=== PATIENT | female | born 1930 | race Caucasian/White ===

== ENCOUNTER 2018-01-17 11:39 | Inpatient (IN) | payer MEDICARE ==
[~2018-01-17] VITALS: Ht 160 cm; Wt 85.6 kg
[2018-01-17 11:55] LABS: BASOPHILS % (AUTO) 1.1 % (0.0-5.0); EOSINOPHILS % (AUTO) 4.2 % (0.0-8.0); HEMATOCRIT 35.9 % (36-48); LYMPHOCYTES % (AUTO) 22.6 % (21.0-51.0); MEAN CORPUSCULAR HEMOGLOBIN 32.9 pg (27.0-33.0); MONOCYTES % (AUTO) 9.3 % (3.0-13.0); NEUTROPHILS % (AUTO) 62.8 % (40.0-77.0); NUCLEATED RED BLOOD CELLS 0.2 % (0.0-0.19); PLATELET COUNT (AUTO) 153 K/uL (130-400); RED BLOOD CELL COUNT(AUTO) 3.82 MIL/uL (4.00-5.50); RED CELL DISTRIBUTION WIDTH 14.3 % (11.0-15.5)
[2018-01-17 12:06] LABS: CREATININE 1.6 mg/dL (0.5-1.5); INR 1.16 (0.85-1.15); PARTIAL THROMBOPLASTIN TIME 24.5 SEC (26.3-35.5); POTASSIUM 4.5 mmol/L (3.5-5.1); PROTHROMBIN TIME 12.1 SEC (9.6-11.6)
[2018-01-17 12:13] LABS: B-TYPE NATRIURETIC PEPTIDE 513 pg/mL (0-100)
[2018-01-17] MEDS ORDERED: VERAPAMIL HCL 2.5 MG/ML VIAL IVP SCH ×2 (12:15→12:30)
[2018-01-17 12:20] LABS: ALBUMIN 3.6 g/dL (3.5-5.0); BILIRUBIN,TOTAL 0.7 mg/dL (0.2-1.0); CREATINE KINASE MB 1.2 ng/mL (0.5-3.6)
[2018-01-17] MEDS ORDERED: SODIUM CHLORIDE 0.9% 100 ML IV SCH (12:30)
[2018-01-17 22:00] VITALS: BP 149/95
[2018-01-18 03:51] VITALS: BP 131/96
[2018-01-18 07:14] VITALS: BP 154/80
[2018-01-18] MEDS: PANTOPRAZOLE SODIUM 40 MG TABLET.DR PO SCH (08:07)
[2018-01-18] MEDS ORDERED: OMEP20CA10 PO (09:48)
[2018-01-18] MEDS ORDERED: MULT-685 PO (09:48)
[2018-01-18] MEDS ORDERED: TRAV2.5D OD (09:48)
[2018-01-18] MEDS ORDERED: TIMO1DRO OP (09:48)
[2018-01-18] MEDS ORDERED: OXYB5TAB PO (09:48)
[2018-01-18] MEDS ORDERED: SENN-136 PO (09:48)
[2018-01-18] MEDS ORDERED: GABA-529 PO (09:48)
[2018-01-18] MEDS ORDERED: LEVE500T19 PO (09:48)
[2018-01-18] MEDS ORDERED: HYDR12.54 PO (09:48)
[2018-01-18] MEDS ORDERED: CALC600T12 PO (09:48)
[2018-01-18] MEDS ORDERED: METO-391 PO (09:48)
[2018-01-18] MEDS ORDERED: ACET-2900 PO (09:48)
[2018-01-18] MEDS ORDERED: AEC81 PO (09:48)
[2018-01-18] MEDS ORDERED: GUAIFENESIN-DM 200/20 MG 10 ML PO PRN (10:00)
[2018-01-18] MEDS ORDERED: NITROGLYCERIN 0.4 MG SL TAB SL PRN (10:00)
[2018-01-18] MEDS ORDERED: ONDANSETRON HCL 4 MG/2 ML VIAL IV PRN (10:00)
[2018-01-18] MEDS ORDERED: ACETAMINOPHEN-CODEINE 300/30MG TAB PO PRN (10:00)
[2018-01-18] MEDS ORDERED: LACTULOSE 20 GM/30 ML UDCUP PO PRN (10:00)
[2018-01-18] MEDS ORDERED: HYDRALAZINE HCL 20 MG/ML VIAL IV PRN (10:00)
[2018-01-18] MEDS ORDERED: ACETAMINOPHEN 325 MG TAB PO PRN (10:00)
[2018-01-18] MEDS ORDERED: MORPHINE SULFATE 2 MG/ML 1ML SYG IV PRN (10:00)
[2018-01-18] MEDS ORDERED: METOPROLOL TARTRATE 1 MG/ML 5ML VIAL IV PRN (10:00)
[2018-01-18] MEDS ORDERED: ZOLPIDEM TARTRATE 5 MG TAB PO PRN (10:00)
[2018-01-18] MEDS: IPRATROPIUM 0.5 MG/2.5 ML INH IH SCH ×3 (10:42→23:13)
[2018-01-18 10:56] VITALS: BP 139/83
[2018-01-18 15:57] VITALS: BP 135/83
[2018-01-18 16:00] LABS: HEMATOCRIT 36.3 % (36-48); MEAN CORPUSCULAR HEMOGLOBIN 32.2 pg (27.0-33.0); MEAN CORPUSCULAR HGB CONC 33.9 g/dL (32.0-36.0); PLATELET COUNT (AUTO) 147 K/uL (130-400); RED BLOOD CELL COUNT(AUTO) 3.82 MIL/uL (4.00-5.50); RED CELL DISTRIBUTION WIDTH 14.1 % (11.0-15.5); WHITE BLOOD COUNT (AUTO) 7.9 K/uL (4.8-10.8)
[2018-01-18 16:32] LABS: CREATININE 1.4 mg/dL (0.5-1.5); POTASSIUM 3.9 mmol/L (3.5-5.1); THYROID STIMULATING HORMONE 6.03 uIU/mL (0.36-3.74)
[2018-01-18] MEDS: CALCIUM 600 + VITAMIN D 400 TABLET PO SCH (17:00)
[2018-01-18 18:19] LABS: BAND NEUTROPHILS % (MANUAL) 1 % (0-2); EOSINOPHILS % (MANUAL) 4 % (1-6); LYMPHOCYTES % (MANUAL) 22 % (22-44); MONOCYTES % (MANUAL) 9 % (2-9); SEGMENTED NEUTROPHILS % 64 % (40-70)
[2018-01-18 18:20] LABS: MAN.DIFF COMMENT-IMPRESSION MANUAL DIFFERENTIAL
[2018-01-18 19:54] VITALS: BP 145/105
[2018-01-18] MEDS: APIXABAN 5 MG TABLET PO SCH (20:11)
[2018-01-18] MEDS: METOPROLOL TARTRATE 25 MG TAB PO SCH (20:11)
[2018-01-18] MEDS: LEVETIRACETAM 500 MG TABLET PO SCH (20:11)
[2018-01-18] MEDS: LATANOPROST 2.5 ML DROPS OD SCH (20:11)
[2018-01-18] MEDS: FAMOTIDINE 20MG TAB 20 MG TAB PO SCH (20:11)
[2018-01-18] MEDS: FUROSEMIDE 10 MG/ML 2ML VIAL IV SCH (20:12)
[2018-01-18] MEDS: TIMOLOL MALEATE 0.25% 5 ML BOTTLE OP SCH (20:29)
[2018-01-18] MEDS ORDERED: METOPROLOL TARTRATE 50 MG TAB PO SCH (21:00)
[2018-01-19] VITALS (7 sets, daily range): BP systolic 105–138; BP diastolic 67–87
[2018-01-19 04:48] LABS: CREATININE 1.4 mg/dL (0.5-1.5); POTASSIUM 3.5 mmol/L (3.5-5.1)
[2018-01-19] MEDS: IPRATROPIUM 0.5 MG/2.5 ML INH IH SCH ×4 (05:51→23:32)
[2018-01-19] MEDS: FAMOTIDINE 20MG TAB 20 MG TAB PO SCH ×2 (09:00→09:07)
[2018-01-19] MEDS: DOCUSATE SODIUM 100 MG CAP PO SCH (09:00)
[2018-01-19] MEDS: METOPROLOL TARTRATE 25 MG TAB PO SCH ×3 (09:00→20:56)
[2018-01-19] MEDS: PANTOPRAZOLE SODIUM 40 MG TABLET.DR PO SCH ×2 (09:00→09:08)
[2018-01-19] MEDS ORDERED: ASPIRIN 81 MG EC TAB PO SCH (09:00)
[2018-01-19] MEDS: LEVETIRACETAM 500 MG TABLET PO SCH ×3 (09:00→20:56)
[2018-01-19] MEDS: GABAPENTIN 100 MG CAPSULE PO SCH (09:07)
[2018-01-19] MEDS: CALCIUM 600 + VITAMIN D 400 TABLET PO SCH ×2 (09:07→17:25)
[2018-01-19] MEDS: FUROSEMIDE 10 MG/ML 2ML VIAL IV SCH ×2 (09:08→20:55)
[2018-01-19] MEDS: MULTIVITAMIN WITH MINERALS TABLET PO SCH (09:08)
[2018-01-19] MEDS: APIXABAN 5 MG TABLET PO SCH ×2 (09:08→20:56)
[2018-01-19] MEDS: DIGOXIN 250 MCG/ML 2ML AMP IV SCH ×4 (09:17→19:41)
[2018-01-19] MEDS: SENNOSIDES 8.6 MG TABLET PO SCH (09:18)
[2018-01-19] MEDS: TIMOLOL MALEATE 0.25% 5 ML BOTTLE OP SCH ×2 (09:18→20:57)
[2018-01-19] MEDS: LATANOPROST 2.5 ML DROPS OD SCH (20:57)
[2018-01-19] MEDS ORDERED: DIGOXIN 250 MCG/ML 2ML AMP IV ONE (23:30)
[2018-01-20 03:54] VITALS: BP 139/85
[2018-01-20 04:36] LABS: CREATININE 1.5 mg/dL (0.5-1.5); POTASSIUM 3.5 mmol/L (3.5-5.1)
[2018-01-20] MEDS: IPRATROPIUM 0.5 MG/2.5 ML INH IH SCH ×2 (06:04→11:08)
[2018-01-20] MEDS ORDERED: LEVOTHYROXINE 25 MCG TABLET PO SCH (06:30)
[2018-01-20 07:00] VITALS: BP 142/69
[2018-01-20] MEDS: APIXABAN 5 MG TABLET PO SCH (08:54)
[2018-01-20] MEDS: DOCUSATE SODIUM 100 MG CAP PO SCH (08:56)
[2018-01-20] MEDS: SENNOSIDES 8.6 MG TABLET PO SCH (08:56)
[2018-01-20] MEDS: MULTIVITAMIN WITH MINERALS TABLET PO SCH (08:57)
[2018-01-20] MEDS: LEVETIRACETAM 500 MG TABLET PO SCH (08:57)
[2018-01-20] MEDS: PANTOPRAZOLE SODIUM 40 MG TABLET.DR PO SCH (08:57)
[2018-01-20] MEDS: CALCIUM 600 + VITAMIN D 400 TABLET PO SCH (08:57)
[2018-01-20] MEDS: GABAPENTIN 100 MG CAPSULE PO SCH (08:57)
[2018-01-20] MEDS: FAMOTIDINE 20MG TAB 20 MG TAB PO SCH (08:57)
[2018-01-20] MEDS: TIMOLOL MALEATE 0.25% 5 ML BOTTLE OP SCH (08:58)
[2018-01-20] MEDS ORDERED: FUROSEMIDE 20 MG TABLET PO SCH (09:00)
[2018-01-20] MEDS ORDERED: CARVEDILOL 12.5 MG TABLET PO SCH (09:00)
[2018-01-20] MEDS ORDERED: LOSARTAN 50 MG TABLET PO SCH (09:00)
[2018-01-20 11:00] VITALS: BP 132/80
[2018-01-20] MEDS ORDERED: LEVO25TA9 PO (14:30)
[2018-01-20] MEDS ORDERED: DIGO125T87 PO (14:30)
[2018-01-20] MEDS ORDERED: CARV12.580 PO (14:30)
[2018-01-20] MEDS ORDERED: APIX5TAB PO (14:30)
[2018-01-20] MEDS ORDERED: LOSA50TA2 PO (14:30)
[2018-01-20 16:00] VITALS: BP 130/84
[2018-01-20] MEDS ORDERED: DIGOXIN 125 MCG TABLET PO SCH (16:00)
== END 2018-01-20 16:40 | disposition home or self-care (01) | DRG 189 ==
LOC: EDH 11:39 → EDHIP 17:16 → 2AH 21:41
PROVIDERS: ADMIT Family Medicine; ATTEND Family Medicine
PROC: 5A09357 Assistance with Respiratory Ventilation, Less than 24 Consecutive Hours, Continuous Positive Airway Pressure (ICD-10-PCS; principal; 2018-01-17)
DX: J96.01 Acute respiratory failure with hypoxia (principal); J81.0 Acute pulmonary edema; N17.9 Acute kidney failure, unspecified; E87.70 Fluid overload, unspecified; I48.91 Unspecified atrial fibrillation; G40.909 Epilepsy, unspecified, not intractable, without status epilepticus; G25.81 Restless legs syndrome; E03.9 Hypothyroidism, unspecified; J81.1 Chronic pulmonary edema; I12.9 Hypertensive chronic kidney disease with stage 1 through stage 4 chronic kidney disease, or unspecified chronic kidney disease; K21.9 Gastro-esophageal reflux disease without esophagitis; N18.3 Chronic kidney disease, stage 3 (moderate); I45.9 Conduction disorder, unspecified; Z95.0 Presence of cardiac pacemaker; Z79.899 Other long term (current) drug therapy; Z87.891 Personal history of nicotine dependence; Z90.49 Acquired absence of other specified parts of digestive tract; Z98.891 History of uterine scar from previous surgery
CPT/HCPCS: 36415; 71045; 80048; 80053; 82550; 82553; 83880; 84443; 84484; 85025; 85610; 85730; 93005; 93306; 94640; 94660; 94664; 99291; J1160; J1940; J3490

== ENCOUNTER → 2018-10-12 | Outpatient (CLI) | payer MEDICARE ==
[~2018-10-12] MED LIST: APIX5TAB PO; CALC600T12 PO; CARV12.580 PO; DIGO125T87 PO; GABA-529 PO; LEVE500T19 PO; LEVO25TA9 PO; LOSA50TA2 PO; MULT-685 PO; OMEP20CA10 PO; OXYB5TAB PO; SENN-136 PO; TIMO1DRO OP; TRAV2.5D OD
== END | disposition home or self-care (01) ==
LOC: SHCH 07:55
PROVIDERS: ATTEND Internal Medicine Cardiovascular Disease
DX: I34.0 Nonrheumatic mitral (valve) insufficiency (principal); Z95.0 Presence of cardiac pacemaker
CPT/HCPCS: 93306

== ENCOUNTER 2019-01-19 07:28 | Emergency (ER) | payer MEDICARE ==
[2019-01-19] MEDS ORDERED: KETOROLAC TROMETHAMINE 15MG/ML ONE (08:06)
[2019-01-19 08:10] LABS: BASOPHILS % (AUTO) 0.9 % (0.0-5.0); EOSINOPHILS % (AUTO) 6.2 % (0.0-8.0); HEMATOCRIT 37.2 % (36-48); LYMPHOCYTES % (AUTO) 24.4 % (21.0-51.0); MEAN CORPUSCULAR HGB CONC 32.9 g/dL (32.0-36.0); MEAN CORPUSCULAR VOLUME 94.4 fL (79-99); MONOCYTES % (AUTO) 9.5 % (3.0-13.0); PLATELET COUNT (AUTO) 125 K/uL (130-400); RED BLOOD CELL COUNT(AUTO) 3.94 MIL/uL (4.00-5.50); RED CELL DISTRIBUTION WIDTH 14.8 % (11.0-15.5); WHITE BLOOD COUNT (AUTO) 7.6 K/uL (4.8-10.8)
[2019-01-19 08:16] LABS: APPEARANCE,URINE CLEAR (CLEAR); BILIRUBIN,URINE NEGATIVE (NEGATIVE); COLOR,URINE YELLOW (YELLOW); GLUCOSE, URINE (UA) NEGATIVE (NEGATIVE); KETONES,URINE NEGATIVE (NEGATIVE); LEUKOCYTE ESTERASE ,URINE LARGE (NEGATIVE); NITRATE,URINE NEGATIVE (NEGATIVE); OCCULT BLOOD,URINE TRACE-INTACT (NEGATIVE); PROTEIN,URINE NEGATIVE (NEGATIVE)
[2019-01-19 08:18] LABS: CREATININE 1.8 mg/dL (0.5-1.5); POTASSIUM 4.4 mmol/L (3.5-5.1)
[2019-01-19 08:29] LABS: BACTERIA,URINE Rare /HPF (None Seen); RBC,URINE 0-1 /HPF (0-1); SQUAMOUS EPITHELIAL CELL,UR Few /HPF (0-2)
== END 2019-01-19 09:38 | disposition home or self-care (01) ==
LOC: EDH 07:28
DX: M54.42 Lumbago with sciatica, left side (principal); M79.662 Pain in left lower leg; G89.29 Other chronic pain; I10 Essential (primary) hypertension; K21.9 Gastro-esophageal reflux disease without esophagitis; M19.90 Unspecified osteoarthritis, unspecified site; Z95.1 Presence of aortocoronary bypass graft
CPT/HCPCS: 36415; 72131; 80048; 81001; 85025; 96374; 99284; J1885

== ENCOUNTER 2019-08-19 11:25 | Inpatient (IN) | payer MEDICARE ==
[~2019-08-19] VITALS: Ht 160 cm; Wt 63.5 kg
[~2019-08-19 11:25] MED LIST changes: +OMEP-50 PO; -OMEP20CA10 PO; -OXYB5TAB PO; +OXYB5TAB4 PO
[2019-08-19 12:01] LABS: BASOPHILS % (AUTO) 0.8 % (0.0-5.0); EOSINOPHILS % (AUTO) 1.6 % (0.0-8.0); HEMATOCRIT 36.6 % (36-48); LYMPHOCYTES % (AUTO) 20.4 % (21.0-51.0); MEAN CORPUSCULAR HEMOGLOBIN 31.6 pg (27.0-33.0); MEAN CORPUSCULAR HGB CONC 33.5 g/dL (32.0-36.0); MEAN CORPUSCULAR VOLUME 94.3 fL (79-99); MONOCYTES % (AUTO) 11.5 % (3.0-13.0); NEUTROPHILS % (AUTO) 65.7 % (40.0-77.0); PLATELET COUNT (AUTO) 129 K/uL (130-400); RED BLOOD CELL COUNT(AUTO) 3.88 MIL/uL (4.00-5.50); RED CELL DISTRIBUTION WIDTH 15.1 % (11.0-15.5); WHITE BLOOD COUNT (AUTO) 7.3 K/uL (4.8-10.8)
[2019-08-19 12:06] LABS: CREATININE 1.8 mg/dL (0.5-1.5); POTASSIUM 4.2 mmol/L (3.5-5.1)
[2019-08-19 12:10] LABS: INR 1.39 (0.85-1.15); PARTIAL THROMBOPLASTIN TIME 26.4 SEC (26.3-35.5); PROTHROMBIN TIME 14.4 SEC (9.6-11.6)
[2019-08-19 12:12] LABS: ALBUMIN 3.1 g/dL (3.5-5.0); BILIRUBIN,TOTAL 1.1 mg/dL (0.2-1.0); TOTAL PROTEIN, SERUM 7.3 g/dL (6.0-8.3)
[2019-08-19] MEDS ORDERED: FUROSEMIDE 10 MG/ML 4ML VIAL ONE (13:05)
[2019-08-19] MEDS ORDERED: FUROSEMIDE 10 MG/ML 2ML VIAL ONE (13:05)
[2019-08-19] MEDS ORDERED: HYDROCODONE/ACETAMINOPHEN 5/325 MG TAB PO PRN (14:45)
[2019-08-19] MEDS ORDERED: MORPHINE SULFATE 2 MG/ML 1ML SYG IV PRN (14:45)
[2019-08-19] MEDS ORDERED: ACETAMINOPHEN 325 MG TAB PO PRN (14:45)
[2019-08-19] MEDS ORDERED: LACTULOSE 20 GM/30 ML UDCUP PO PRN (14:45)
[2019-08-19] MEDS ORDERED: ONDANSETRON HCL 4 MG/2 ML VIAL IV PRN (14:45)
[2019-08-19 16:30] VITALS: BP 148/108
[2019-08-19] MEDS: IPRATROPIUM/ALBUTEROL SULFATE 3 ML SOLUTION IH SCH ×2 (18:31→23:44)
[2019-08-19 20:00] VITALS: BP 118/95
[2019-08-19] MEDS: FAMOTIDINE 20MG TAB 20 MG TAB PO SCH (21:17)
[2019-08-19] MEDS: LEVETIRACETAM 500 MG TABLET PO SCH (21:17)
[2019-08-19] MEDS: APIXABAN 2.5 MG TABLET PO SCH (21:17)
[2019-08-19] MEDS: CARVEDILOL 12.5 MG TABLET PO SCH (21:17)
[2019-08-20] VITALS: BP 137/75
[2019-08-20 04:00] VITALS: BP 127/76
[2019-08-20 04:45] LABS: HEMATOCRIT 37.2 % (36-48); MEAN CORPUSCULAR HEMOGLOBIN 30.9 pg (27.0-33.0); MEAN CORPUSCULAR HGB CONC 33.4 g/dL (32.0-36.0); MEAN CORPUSCULAR VOLUME 92.5 fL (79-99); PLATELET COUNT (AUTO) 131 K/uL (130-400); RED BLOOD CELL COUNT(AUTO) 4.02 MIL/uL (4.00-5.50); RED CELL DISTRIBUTION WIDTH 14.9 % (11.0-15.5); WHITE BLOOD COUNT (AUTO) 7.8 K/uL (4.8-10.8)
[2019-08-20 05:19] LABS: CREATININE 1.8 mg/dL (0.5-1.5); POTASSIUM 3.3 mmol/L (3.5-5.1)
[2019-08-20] MEDS: FUROSEMIDE 10 MG/ML 2ML VIAL IV SCH ×4 (05:19→22:00)
[2019-08-20] MEDS: IPRATROPIUM/ALBUTEROL SULFATE 3 ML SOLUTION IH SCH ×4 (06:34→23:10)
[2019-08-20 07:00] VITALS: BP 135/74
[2019-08-20] MEDS: LEVOTHYROXINE 25 MCG TABLET PO SCH (07:23)
[2019-08-20] MEDS: LEVETIRACETAM 500 MG TABLET PO SCH ×2 (08:58→21:53)
[2019-08-20] MEDS: FAMOTIDINE 20MG TAB 20 MG TAB PO SCH ×2 (08:58→21:53)
[2019-08-20] MEDS: CARVEDILOL 12.5 MG TABLET PO SCH ×2 (08:59→21:53)
[2019-08-20] MEDS: OXYBUTYNIN 5 MG TAB.SR.24H PO SCH (09:00)
[2019-08-20] MEDS: APIXABAN 2.5 MG TABLET PO SCH ×2 (09:00→21:53)
[2019-08-20 12:00] VITALS: BP 121/73
--- NOTE | 2019-08-20 12:44 | NUR ---
DCP CM met with pt discussed dc plans. Pt is independent prior to admission, lives at home with spouse. Pt has a cane. Denies any other equipments/services. Pt feels safe to go back home, still drives, spouse able to assist with transportation and needs. [place] a [place]. DC plan to home once stable. CM to cont to follow up. Addendum: 08/20/19 at 1245 by RAFAELA CHRISTIAN LVN CM Amended: Links added.
[2019-08-20 16:00] VITALS: BP 118/69
[2019-08-20 19:45] VITALS: BP 106/69
[2019-08-20] MEDS ORDERED: LIDOCAINE HCL-MPF 1% 2ML VIAL IJ PRN (20:15)
[2019-08-20] MEDS ORDERED: POTASSIUM CHLORIDE 10% ELIXIR 20 MEQ/15 ML UDCUP PO PRN (20:15)
[2019-08-20] MEDS ORDERED: POTASSIUM CHLORIDE 20 MEQ ERTAB PO PRN (20:15)
[2019-08-20] MEDS ORDERED: POTASSIUM CHLORIDE 10MEQ/100ML 100 ML IV PRN (20:15)
[2019-08-21] VITALS (7 sets, daily range): BP systolic 102–130; BP diastolic 50–70
[2019-08-21 04:21] LABS: HEMATOCRIT 35.4 % (36-48); MEAN CORPUSCULAR HEMOGLOBIN 31.2 pg (27.0-33.0); MEAN CORPUSCULAR VOLUME 91.7 fL (79-99); PLATELET COUNT (AUTO) 121 K/uL (130-400); RED BLOOD CELL COUNT(AUTO) 3.86 MIL/uL (4.00-5.50); RED CELL DISTRIBUTION WIDTH 14.9 % (11.0-15.5); WHITE BLOOD COUNT (AUTO) 8.3 K/uL (4.8-10.8)
[2019-08-21 04:36] LABS: ALBUMIN 2.9 g/dL (3.5-5.0); B-TYPE NATRIURETIC PEPTIDE 472 pg/mL (0-100); CREATININE 1.6 mg/dL (0.5-1.5); MAGNESIUM 2.7 mg/dL (1.80-2.40); PHOSPHORUS 3.5 mg/dL (2.5-4.9); POTASSIUM 3.1 mmol/L (3.5-5.1)
[2019-08-21] MEDS: FUROSEMIDE 10 MG/ML 2ML VIAL IV SCH ×3 (06:00→21:53)
[2019-08-21] MEDS: LEVOTHYROXINE 25 MCG TABLET PO SCH (06:16)
[2019-08-21] MEDS: IPRATROPIUM/ALBUTEROL SULFATE 3 ML SOLUTION IH SCH ×4 (06:29→23:18)
--- NOTE | 2019-08-21 07:59 | NUR ---
PATIENT UPDATE Slept fairly overnight, uses the O2 per nasal cannula on and off. Bedside commode provided, pt on lasix 20 mg iv q 12 hrs then changed to q 8hrs by . Pt on fall precaution, given strict instructions to call should she need to get out of the bed to use the bedside commode to void. Voided more than 1 liter overnight, stated feeling a whole lot better that's why she's using the oxygen on and off. Fine crackles per auscultation of the bibasilar areas.
[2019-08-21] MEDS: APIXABAN 2.5 MG TABLET PO SCH ×2 (10:55→21:54)
[2019-08-21] MEDS: LEVETIRACETAM 500 MG TABLET PO SCH ×2 (10:55→21:53)
[2019-08-21] MEDS: FAMOTIDINE 20MG TAB 20 MG TAB PO SCH ×2 (10:56→21:54)
[2019-08-21] MEDS: CARVEDILOL 12.5 MG TABLET PO SCH ×2 (10:56→21:54)
[2019-08-21] MEDS: OXYBUTYNIN 5 MG TAB.SR.24H PO SCH (11:00)
[2019-08-21] MEDS ORDERED: POTASSIUM CHLORIDE 10% ELIXIR 20 MEQ/15 ML UDCUP PO SCH (16:30)
[2019-08-21] MEDS: POTASSIUM CHLORIDE 10% ELIXIR 20 MEQ/15 ML UDCUP PO SCH (21:53)
[2019-08-22 03:00] VITALS: BP 107/57
[2019-08-22] MEDS: FUROSEMIDE 10 MG/ML 2ML VIAL IV SCH ×2 (05:24→13:49)
[2019-08-22] MEDS: LEVOTHYROXINE 25 MCG TABLET PO SCH (05:25)
[2019-08-22 06:19] LABS: HEMATOCRIT 35.3 % (36-48); MEAN CORPUSCULAR HGB CONC 33.5 g/dL (32.0-36.0); MEAN CORPUSCULAR VOLUME 92.5 fL (79-99); PLATELET COUNT (AUTO) 125 K/uL (130-400); RED BLOOD CELL COUNT(AUTO) 3.81 MIL/uL (4.00-5.50); WHITE BLOOD COUNT (AUTO) 7.7 K/uL (4.8-10.8)
[2019-08-22 06:27] LABS: CREATININE 1.7 mg/dL (0.5-1.5); POTASSIUM 3.5 mmol/L (3.5-5.1)
[2019-08-22] MEDS: IPRATROPIUM/ALBUTEROL SULFATE 3 ML SOLUTION IH SCH ×2 (06:27→11:09)
[2019-08-22 08:00] VITALS: BP 145/65
[2019-08-22] MEDS: OXYBUTYNIN 5 MG TAB.SR.24H PO SCH (09:36)
[2019-08-22] MEDS: FAMOTIDINE 20MG TAB 20 MG TAB PO SCH (09:37)
[2019-08-22] MEDS: APIXABAN 2.5 MG TABLET PO SCH (09:37)
[2019-08-22] MEDS: LEVETIRACETAM 500 MG TABLET PO SCH (09:38)
[2019-08-22] MEDS: CARVEDILOL 12.5 MG TABLET PO SCH (09:39)
[2019-08-22] MEDS: POTASSIUM CHLORIDE 10% ELIXIR 20 MEQ/15 ML UDCUP PO SCH (09:39)
[2019-08-22 11:00] VITALS: BP 104/69
--- NOTE | 2019-08-22 15:00 | NUR ---
SNF: Met w pt this afternoon to discuss Md order/recommendation for SNF. Pt declines SNF/rehab. She mentions that she plans to return home w spouse @ DC.
[2019-08-22 15:49] VITALS: BP 103/67
[2019-08-22] MEDS ORDERED: FURO40TA5 PO (17:08)
[2019-08-22] MEDS ORDERED: POTASSIUM CHLORIDE 10% ELIXIR 20 MEQ/15 ML UDCUP PO SCH (17:15)
== END 2019-08-22 20:00 | disposition home or self-care (01) | DRG 291 ==
LOC: EDH 11:25 → EDHIP 14:36 → 3CH 15:32
PROVIDERS: ADMIT Family Medicine; ATTEND Family Medicine
DX: I13.0 Hypertensive heart and chronic kidney disease with heart failure and stage 1 through stage 4 chronic kidney disease, or unspecified chronic kidney disease (principal); I50.23 Acute on chronic systolic (congestive) heart failure; N17.9 Acute kidney failure, unspecified; E44.1 Mild protein-calorie malnutrition; N18.9 Chronic kidney disease, unspecified; E78.5 Hyperlipidemia, unspecified; E87.6 Hypokalemia; I48.91 Unspecified atrial fibrillation; Z96.649 Presence of unspecified artificial hip joint; G62.9 Polyneuropathy, unspecified; Z79.01 Long term (current) use of anticoagulants; Z95.0 Presence of cardiac pacemaker; Z90.49 Acquired absence of other specified parts of digestive tract; Z68.24 Body mass index [BMI] 24.0-24.9, adult
CPT/HCPCS: 36415; 71045; 80048; 80053; 80162; 82040; 82550; 83735; 83880; 84100; 84484; 85025; 85027; 85610; 85730; 93005; 93306; 94640; 94664; 97039; G0378; J1940

== ENCOUNTER 2019-09-09 11:58 | Inpatient (IN) | payer MEDICARE ==
[~2019-09-09] VITALS: Ht 160 cm; Wt 63.8 kg
[~2019-09-09 11:58] MED LIST changes: +FURO40TA5 PO
[2019-09-09 12:58] LABS: CREATINE KINASE, TOTAL 152 U/L (21-232); MYOGLOBIN 122 ng/mL (10-92); TROPONIN I < 0.04 ng/mL (0.00-0.06)
[2019-09-09 13:01] VITALS: BP 105/58
[2019-09-09 13:01] LABS: ALBUMIN 3.2 g/dL (3.5-5.0); BILIRUBIN,TOTAL 0.7 mg/dL (0.2-1.0); POTASSIUM 3.6 mmol/L (3.5-5.1); THYROID STIMULATING HORMONE 3.3 uIU/mL (0.36-3.74); TOTAL PROTEIN, SERUM 7.9 g/dL (6.0-8.3)
[2019-09-09 13:40] LABS: B-TYPE NATRIURETIC PEPTIDE 244 pg/mL (0-100)
[2019-09-09 13:43] LABS: BASOPHILS % (AUTO) 0.6 % (0.0-5.0); EOSINOPHILS % (AUTO) 5.2 % (0.0-8.0); HEMATOCRIT 39.5 % (36-48); MEAN CORPUSCULAR HEMOGLOBIN 30.7 pg (27.0-33.0); MEAN CORPUSCULAR HGB CONC 33.4 g/dL (32.0-36.0); MEAN CORPUSCULAR VOLUME 91.8 fL (79-99); MONOCYTES % (AUTO) 12.5 % (3.0-13.0); NEUTROPHILS % (AUTO) 62.7 % (40.0-77.0); PLATELET COUNT (AUTO) 133 K/uL (130-400); RED CELL DISTRIBUTION WIDTH 15.2 % (11.0-15.5); WHITE BLOOD COUNT (AUTO) 9.1 K/uL (4.8-10.8)
[2019-09-09] MEDS ORDERED: FUROSEMIDE 10 MG/ML 4ML VIAL IV SCH (15:15)
[2019-09-09 15:29] VITALS: BP 85/35
[2019-09-09] MEDS: DOBUTAMINE 250MG/D5 250ML 250 ML IV PRN (16:35)
--- NOTE | 2019-09-09 16:38 | NUR ---
DR RYAN INFORMED DR RYAN THAT PATIENT HAS BUN 90 AND CREATININE LEVEL 3.0, ORDERS GIVEN TO HOLD LASIX AND START PATIENT ON DOBUTAMINE PREVIOUSLY ORDERED. ALSO INFORMED THAT CURRENT BP IS 88/48.
[2019-09-09 16:58] LABS: CREATINE KINASE, TOTAL 141 U/L (21-232); MYOGLOBIN 106 ng/mL (10-92); TROPONIN I < 0.04 ng/mL (0.00-0.06)
[2019-09-09 19:35] VITALS: BP 101/60
[2019-09-09 19:41] VITALS: BP 106/49
[2019-09-09] MEDS: LEVETIRACETAM 500 MG TABLET PO SCH (20:53)
[2019-09-09] MEDS: GABAPENTIN 100 MG CAPSULE PO SCH (20:54)
[2019-09-09 20:55] VITALS: BP 100/41
[2019-09-09] MEDS: CARVEDILOL 12.5 MG TABLET PO SCH (20:55)
[2019-09-09] MEDS ORDERED: LOSARTAN 50 MG TABLET PO SCH (21:00)
[2019-09-09] MEDS ORDERED: APIXABAN 5 MG TABLET PO SCH (21:00)
[2019-09-09 23:28] VITALS: BP 116/55
[2019-09-10] VITALS (7 sets, daily range): BP systolic 93–140; BP diastolic 29–93
[2019-09-10 04:30] LABS: POTASSIUM 3.1 mmol/L (3.5-5.1)
[2019-09-10] MEDS: LEVOTHYROXINE 25 MCG TABLET PO SCH (05:22)
[2019-09-10] MEDS: DOBUTAMINE 250MG/D5 250ML 250 ML IV PRN ×2 (05:25→20:40)
[2019-09-10] MEDS ORDERED: SODIUM CHLORIDE 0.9% 500ML 500 ML IV SCH (07:15)
[2019-09-10] MEDS: CARVEDILOL 12.5 MG TABLET PO SCH ×2 (09:00→20:41)
[2019-09-10] MEDS: LEVETIRACETAM 500 MG TABLET PO SCH ×2 (09:22→20:41)
[2019-09-10] MEDS: DIGOXIN 125 MCG TABLET PO SCH (09:22)
[2019-09-10] MEDS: APIXABAN 5 MG TABLET PO SCH ×2 (09:22→20:40)
--- NOTE | 2019-09-10 09:44 | NUR ---
MD UPDATE Spoke to by phone regarding pt's recent event. states he had already been updated by pt's primary nurse. Reviewed plan of care with MD. Will hold losartan.
--- NOTE | 2019-09-10 17:17 | NUR ---
DC PLANNING PATIENT REQUIRES SOME ASSISTANCE WITH ADLS, LIVES WITH SPOUSE, NO PROVIDER, HAS WALKER AND CANE. PER PATIENT, FEELS SAFE TO RETURN HOME. Addendum: 09/10/19 at 1718 by NACHO RAYGOZA Amended: Links added.
[2019-09-10] MEDS: GABAPENTIN 100 MG CAPSULE PO SCH (20:41)
[2019-09-11 04:53] VITALS: BP 128/55
[2019-09-11 05:41] LABS: CREATININE 2.2 mg/dL (0.5-1.5)
[2019-09-11] MEDS: LEVOTHYROXINE 25 MCG TABLET PO SCH (05:45)
[2019-09-11 07:48] VITALS: BP 134/67
[2019-09-11] MEDS: CARVEDILOL 12.5 MG TABLET PO SCH ×2 (08:57→20:18)
[2019-09-11] MEDS: APIXABAN 5 MG TABLET PO SCH ×2 (08:57→21:13)
[2019-09-11] MEDS: LEVETIRACETAM 500 MG TABLET PO SCH ×2 (08:58→21:15)
[2019-09-11] MEDS: DIGOXIN 125 MCG TABLET PO SCH (08:59)
[2019-09-11] MEDS: ACETAMINOPHEN-CODEINE 300/30MG TAB PO PRN ×2 (11:36→18:16)
[2019-09-11] MEDS: DOBUTAMINE 250MG/D5 250ML 250 ML IV PRN (12:11)
[2019-09-11 12:14] VITALS: BP 104/48
[2019-09-11 15:36] VITALS: BP 120/92
[2019-09-11 19:42] VITALS: BP 101/46
[2019-09-11] MEDS: GABAPENTIN 100 MG CAPSULE PO SCH (21:15)
[2019-09-12] VITALS (8 sets, daily range): BP systolic 96–120; BP diastolic 42–56
[2019-09-12] MEDS: DOBUTAMINE 250MG/D5 250ML 250 ML IV PRN ×2 (03:33→16:58)
[2019-09-12 04:56] LABS: CREATININE 1.8 mg/dL (0.5-1.5); POTASSIUM 3.4 mmol/L (3.5-5.1)
[2019-09-12] MEDS: LEVOTHYROXINE 25 MCG TABLET PO SCH (05:39)
[2019-09-12] MEDS: APIXABAN 5 MG TABLET PO SCH ×2 (09:24→20:32)
[2019-09-12] MEDS: LEVETIRACETAM 500 MG TABLET PO SCH ×2 (09:25→20:31)
[2019-09-12] MEDS: CARVEDILOL 12.5 MG TABLET PO SCH ×2 (09:25→20:16)
[2019-09-12] MEDS: DIGOXIN 125 MCG TABLET PO SCH (09:26)
[2019-09-12] MEDS: ACETAMINOPHEN-CODEINE 300/30MG TAB PO PRN ×2 (09:39→17:09)
[2019-09-12] MEDS ORDERED: CIPROFLOXACIN HCL 250 MG TABLET PO SCH (09:45)
[2019-09-12] MEDS ORDERED: LEVOFLOXACIN 500 MG TABLET PO SCH (10:30)
[2019-09-12] MEDS: GABAPENTIN 100 MG CAPSULE PO SCH (20:32)
[2019-09-13 04:02] LABS: CREATININE 1.6 mg/dL (0.5-1.5); POTASSIUM 3.4 mmol/L (3.5-5.1)
[2019-09-13 04:25] VITALS: BP 110/67
[2019-09-13] MEDS: LEVOTHYROXINE 25 MCG TABLET PO SCH (05:32)
[2019-09-13] MEDS ORDERED: APIX2.5T PO (05:58)
[2019-09-13] MEDS ORDERED: CIPR250T6 PO (05:58)
[2019-09-13] MEDS ORDERED: CARV10CR PO (05:58)
[2019-09-13 07:57] VITALS: BP 98/54
--- NOTE | 2019-09-13 08:00 | NUR ---
DOBUTAMINE GTT DOBUTAMINE DC'D @ THIS TIME PER DR RYAN ORDERS. DAUGHTER BEDSIDE. FAMILY UPDATED ON PT'S PLAN OF CARE.
--- NOTE | 2019-09-13 08:00 | NUR ---
AM ASSESSMENT PT LAYING IN BED, HOB ELEVATED 30 DEGREES, RESTING. DAUGHTER @ BEDSIDE. A/O X 3. NO SOB. NO DISTRESS NOTED. DENIES CHEST PAIN OR DISCOMFORT. TELE: PACED 70s. DENIES N/V AND/OR DIARRHEA. BEDREST. GBW. PHYS THERAPY TO EVAL TODAY. INSTRUCTED TO CALL FOR ASSISTANCE. CALL BRENNA W/IN REACH.
[2019-09-13] MEDS: CARVEDILOL 12.5 MG TABLET PO SCH ×2 (09:00→21:00)
[2019-09-13] MEDS: FUROSEMIDE 20 MG TABLET PO SCH (09:36)
[2019-09-13] MEDS: DIGOXIN 125 MCG TABLET PO SCH (09:36)
[2019-09-13] MEDS: LEVETIRACETAM 500 MG TABLET PO SCH ×2 (09:36→21:07)
[2019-09-13] MEDS: APIXABAN 5 MG TABLET PO SCH (09:37)
[2019-09-13] MEDS ORDERED: PANTOPRAZOLE SODIUM 40 MG TABLET.DR PO SCH (10:04)
[2019-09-13] MEDS: ACETAMINOPHEN-CODEINE 300/30MG TAB PO PRN ×2 (10:38→16:38)
[2019-09-13 12:14] VITALS: BP 100/57
[2019-09-13 16:07] VITALS: BP 87/49
[2019-09-13 19:46] VITALS: BP 99/47
[2019-09-13] MEDS: GABAPENTIN 100 MG CAPSULE PO SCH (21:07)
[2019-09-13] MEDS: APIXABAN 2.5 MG TABLET PO SCH (21:08)
[2019-09-13 23:59] VITALS: BP 96/70
[2019-09-14 03:28] VITALS: BP 95/66
[2019-09-14 05:08] LABS: CREATININE 1.7 mg/dL (0.5-1.5); POTASSIUM 3.4 mmol/L (3.5-5.1)
[2019-09-14] MEDS ORDERED: PANTOPRAZOLE SODIUM 40 MG TABLET.DR PO ONE (06:19)
[2019-09-14] MEDS: PANTOPRAZOLE SODIUM 40 MG TABLET.DR PO SCH ×2 (06:21→09:48)
[2019-09-14] MEDS: LEVOTHYROXINE 25 MCG TABLET PO SCH (06:22)
[2019-09-14 07:00] VITALS: BP 113/70
[2019-09-14] MEDS ORDERED: POTASSIUM CHLORIDE 20MEQ/100ML 100 ML IV PRN (07:00)
[2019-09-14] MEDS ORDERED: LIDOCAINE HCL-MPF 1% 2ML VIAL IV PRN (07:00)
[2019-09-14] MEDS ORDERED: POTASSIUM CHLORIDE 10% ELIXIR 20 MEQ/15 ML UDCUP PO PRN (07:00)
--- NOTE | 2019-09-14 07:27 | NUR ---
Dr. Fernandez here and saw pt notified of pt's low bp and coreg was held and pt potassium was low received new order.Bedside report monique to hans OQUENDO using SBAR all questions answered.
--- NOTE | 2019-09-14 08:00 | NUR ---
AM ASSESSMENT PT LAYING IN BED, HOB ELEVATED 30 DEGREES, RESTING. FAMILY @ BEDSIDE. A/O X 3. NO SOB. NO DISTRESS NOTED. DENIES CHEST PAIN OR DISCOMFORT. DENIES PALPITATIONS. TELE: PACED 70s. DENIES N/V AND/OR DIARRHEA. UP TO CHAIR W/ASSISTANCE. GBW. INSTRUCTED TO CALL FOR ASSISTANCE. CALL BRENNA W/IN REACH. Addendum: 09/14/19 at 1248 by LAZARO THACKER RN RN ERROR ENTRY: INCORRECT TIME ENTERED FOR ASSESSMENT. CORRECT TIME 1521.
[2019-09-14] MEDS: LEVETIRACETAM 500 MG TABLET PO SCH ×2 (09:20→20:19)
[2019-09-14] MEDS: APIXABAN 2.5 MG TABLET PO SCH ×2 (09:20→20:19)
[2019-09-14] MEDS: FUROSEMIDE 20 MG TABLET PO SCH (09:20)
[2019-09-14] MEDS: ACETAMINOPHEN-CODEINE 300/30MG TAB PO PRN ×2 (09:21→20:21)
[2019-09-14] MEDS: DIGOXIN 125 MCG TABLET PO SCH (09:21)
[2019-09-14] MEDS: CARVEDILOL 12.5 MG TABLET PO SCH ×2 (09:22→20:20)
[2019-09-14 11:00] VITALS: BP 112/52
[2019-09-14] MEDS: POTASSIUM CHLORIDE 20 MEQ ERTAB PO PRN (12:37)
[2019-09-14 15:00] VITALS: BP 99/45
[2019-09-14 19:50] VITALS: BP 108/46
[2019-09-14] MEDS: GABAPENTIN 100 MG CAPSULE PO SCH (20:18)
[2019-09-14 23:32] VITALS: BP 92/49
[2019-09-15 03:19] VITALS: BP 106/50
[2019-09-15 04:51] LABS: CREATININE 1.8 mg/dL (0.5-1.5); POTASSIUM 3.9 mmol/L (3.5-5.1)
[2019-09-15] MEDS: PANTOPRAZOLE SODIUM 40 MG TABLET.DR PO SCH (06:35)
[2019-09-15] MEDS: LEVOTHYROXINE 25 MCG TABLET PO SCH (06:35)
[2019-09-15] MEDS: ACETAMINOPHEN-CODEINE 300/30MG TAB PO PRN ×3 (06:40→20:32)
[2019-09-15 07:18] VITALS: BP 106/53
[2019-09-15] MEDS: APIXABAN 2.5 MG TABLET PO SCH ×2 (07:35→20:29)
[2019-09-15] MEDS: DIGOXIN 125 MCG TABLET PO SCH (07:35)
[2019-09-15] MEDS: LEVETIRACETAM 500 MG TABLET PO SCH ×2 (07:35→20:31)
[2019-09-15] MEDS: FUROSEMIDE 20 MG TABLET PO SCH (07:35)
[2019-09-15] MEDS: CARVEDILOL 12.5 MG TABLET PO SCH ×2 (07:37→20:31)
--- NOTE | 2019-09-15 08:00 | NUR ---
ASSESSMENT PT IS AAOX3 DENIES CP DENIES SOB DENIES NV NO COMPLAINTS RESTING IN BED, AM MEDS GIVEN. CALL LIGHT WITHIN REACH. FAMILY IS AT BEDSIDE.
[2019-09-15 11:48] VITALS: BP 91/46
--- NOTE | 2019-09-15 14:32 | NUR ---
RD NOTIFICATION Dx: Acute on Chronic Systolic CHF. Diet: Heart Healthy/ Ensure TID. Po intake 25% and has poor appetite as per pt and family. Pt has a history of constipation as per family. Pt claims significant weight loss of about 90 pounds in the past year; that is 36% weight loss in one year. Pt with physical evidence of fat and muscle loss. Pt stated she is consuming 50-75% of Ensure and likes to drink them. RD recommends continue current diet. Continue to offer Ensure (Chocolate) with all meals. Pt also stated she likes strawberry yogurt. RD recommends a stool softener and possibly an appetite stimulant. RD will continue to monitor and follow up as needed. Thank you. Archana Crawford MS, RDN Addendum: 09/15/19 at [address] Amended: Links added.
[2019-09-15 15:14] VITALS: BP 95/51
--- NOTE | 2019-09-15 16:36 | NUR ---
DC PLAN PATIENT AND FAMILY AWARE OF ORDER FOR SNF REFERRAL PER ADMITTING MD. OPTIONS FOR SNF GIVE TO PATIENT AND FAMILY. PER FAMILY, WILL COMPARE FACILITIES AND LET NURSE KNOW OF DECISION.
[2019-09-15 19:16] VITALS: BP 101/57
[2019-09-15] MEDS: GABAPENTIN 100 MG CAPSULE PO SCH (20:32)
[2019-09-16] VITALS (7 sets, daily range): BP systolic 104–142; BP diastolic 50–67
[2019-09-16 04:20] LABS: CREATININE 1.6 mg/dL (0.5-1.5)
[2019-09-16] MEDS: LEVOTHYROXINE 25 MCG TABLET PO SCH (06:28)
[2019-09-16] MEDS: PANTOPRAZOLE SODIUM 40 MG TABLET.DR PO SCH (07:07)
[2019-09-16] MEDS: ACETAMINOPHEN-CODEINE 300/30MG TAB PO PRN ×2 (07:07→16:35)
[2019-09-16] MEDS: CARVEDILOL 12.5 MG TABLET PO SCH ×2 (09:00→09:47)
[2019-09-16] MEDS: LEVETIRACETAM 500 MG TABLET PO SCH ×2 (09:45→20:52)
[2019-09-16] MEDS: APIXABAN 2.5 MG TABLET PO SCH (09:45)
[2019-09-16] MEDS: FUROSEMIDE 20 MG TABLET PO SCH (09:50)
--- NOTE | 2019-09-16 10:03 | NUR ---
DR. Jimenez in room talking about; 2nd interrogation of PM by [facility] to increase hr to 80.
--- NOTE | 2019-09-16 10:22 | NUR ---
DC PLAN PER PATIENT AND FAMILY, [facility] OPTION SELECTED, DEBORA SIGNED. REFERRAL FAX TO [facility], CONTROL TOWER RADIO OPERATOR, ROBBIE TONY MADE AWARE.
--- NOTE | 2019-09-16 15:01 | NUR ---
NONA AVALOS WITH [facility] CALLED SAID PATIENT IS ACCEPTED AT 1455. Addendum: 09/16/19 at 1502 by JOSE MIGUEL WILLINGHAM RN CM Amended: Links added.
[2019-09-16] MEDS ORDERED: LOPERAMIDE HCL 2 MG CAP PO ONE (20:51)
[2019-09-16] MEDS: GABAPENTIN 100 MG CAPSULE PO SCH (20:52)
[2019-09-16] MEDS ORDERED: LOPERAMIDE HCL 2 MG CAP PO SCH (21:00)
--- NOTE | 2019-09-16 21:00 | NUR ---
CONSENT OBTAINED REGARDING PACEMAKER UPGRADE IN THE AM WITH DR. PERRY DUE TO BRADYCARDIA. NO DISTRESS NOTED. DAUGHTER SIGNED CONSENT DUE TO PT'S HUSBANDS ABSENCE.
[2019-09-17] VITALS (8 sets, daily range): BP systolic 107–118; BP diastolic 60–69
[2019-09-17 04:36] LABS: HEMATOCRIT 33.6 % (36-48); MEAN CORPUSCULAR HEMOGLOBIN 30.6 pg (27.0-33.0); MEAN CORPUSCULAR HGB CONC 33.6 g/dL (32.0-36.0); MEAN CORPUSCULAR VOLUME 91.3 fL (79-99); PLATELET COUNT (AUTO) 133 K/uL (130-400); RED BLOOD CELL COUNT(AUTO) 3.68 MIL/uL (4.00-5.50); WHITE BLOOD COUNT (AUTO) 6.4 K/uL (4.8-10.8)
[2019-09-17 04:49] LABS: CREATININE 1.5 mg/dL (0.5-1.5); POTASSIUM 3.6 mmol/L (3.5-5.1)
--- NOTE | 2019-09-17 05:00 | NUR ---
NEW IV STARTED. 20G TO LEFT AC
[2019-09-17] MEDS: PANTOPRAZOLE SODIUM 40 MG TABLET.DR PO SCH (06:12)
[2019-09-17] MEDS: POTASSIUM CHLORIDE 20 MEQ ERTAB PO PRN (06:12)
[2019-09-17] MEDS: LEVOTHYROXINE 25 MCG TABLET PO SCH (06:12)
[2019-09-17 08:04] LABS: INR 1.15 (0.85-1.15)
[2019-09-17] MEDS: LEVETIRACETAM 500 MG TABLET PO SCH ×2 (08:29→20:38)
[2019-09-17] MEDS: FUROSEMIDE 20 MG TABLET PO SCH (08:30)
--- NOTE | 2019-09-17 08:34 | NUR ---
DR. Ana RYAN IN ROOM ASSESSING/SPEAKING WITH PT. DR. RYAN ALSO INFORMING PT./FAMILY MEMBERS AT BEDSIDE RE:PLAN OF CARE. QUESTIONS ANSWERED BY DR. RYAN.
[2019-09-17] MEDS: MEGESTROL 400 MG/10 ML UDCUP PO SCH (09:00)
[2019-09-17] MEDS: CARVEDILOL 6.25 MG TABLET PO SCH ×2 (09:00→20:39)
--- NOTE | 2019-09-17 15:52 | NUR ---
TO BOARD CATCHER VIA BED ACCOMPANIED BY Delia ERICKSON RN.
[2019-09-17] MEDS ORDERED: BUPIVACAINE/PF 0.25% 30ML VIAL IJ ONE (16:06)
[2019-09-17] MEDS ORDERED: MIDAZOLAM HCL 1 MG/ML 2ML VIAL ONE (16:07)
[2019-09-17] MEDS ORDERED: VANCOMYCIN 1GM+NS 250ML 500 ML IV ONE (16:07)
[2019-09-17] MEDS ORDERED: MEPERIDINE-PF 25 MG/ML SYG ONE (16:07)
[2019-09-17] MEDS ORDERED: LIDOCAINE HCL 1% MDV 50ML VIAL ONE (16:07)
[2019-09-17] MEDS ORDERED: IODIXANOL 320 MG/ML 100 ML VIAL ONE (16:35)
[2019-09-17] MEDS ORDERED: TRAMADOL HCL 50 MG TABLET PO PRN (17:45)
--- NOTE | 2019-09-17 18:15 | NUR ---
RETURNED FROM [employer] ARCHITECT VIA BED ACCOMPANIED BY Julian CHRISTIAN RN. PT. DROWSY BUT AROUSABLE. DENIES ANY CURRENT C/O SOB, DENIES ANY PAIN. LEFT UPPER CHEST WITH LIGHT DRSG IN PLACE WITH CLEAR OPSITE, D/I; AREA SOFT, NO HEMATOMA NOTED. NO CREPITUS NOTED TO LEFT UPPER CHEST. LEFT ARM WITH SLING IN PLACE. INSTRUCTED ON STRICT BEDREST. BED LOW, SIDE RAILS UP X3. FAMILY MEMBERS AT BEDSIDE.
[2019-09-17] MEDS: GABAPENTIN 100 MG CAPSULE PO SCH (20:38)
[2019-09-18 00:27] VITALS: BP 130/70
[2019-09-18 04:20] VITALS: BP 121/72
[2019-09-18 05:09] LABS: CREATININE 1.4 mg/dL (0.5-1.5); POTASSIUM 3.9 mmol/L (3.5-5.1)
[2019-09-18] MEDS: LEVOTHYROXINE 25 MCG TABLET PO SCH (06:03)
[2019-09-18] MEDS: PANTOPRAZOLE SODIUM 40 MG TABLET.DR PO SCH (06:03)
[2019-09-18 07:37] VITALS: BP 119/70
--- NOTE | 2019-09-18 08:47 | NUR ---
DR. Brooklyn GREENBERG IN ROOM SPEAKING WITH PT. AND FAMILY MEMBERS AT BEDSIDE RE:PLAN OF CARE. QUESTIONS ANSWERED BY DR. GREENBERG.
[2019-09-18] MEDS: MEGESTROL 400 MG/10 ML UDCUP PO SCH (10:35)
[2019-09-18] MEDS: LEVETIRACETAM 500 MG TABLET PO SCH ×2 (10:36→21:39)
[2019-09-18] MEDS: CARVEDILOL 6.25 MG TABLET PO SCH ×2 (10:36→21:39)
[2019-09-18] MEDS: ENALAPRIL MALEATE 5 MG TAB PO SCH (10:36)
[2019-09-18] MEDS: FUROSEMIDE 20 MG TABLET PO SCH (10:36)
[2019-09-18 11:58] VITALS: BP 110/55
[2019-09-18 15:41] VITALS: BP 107/51
[2019-09-18 20:47] VITALS: BP 114/62
[2019-09-18] MEDS: GABAPENTIN 100 MG CAPSULE PO SCH (21:39)
[2019-09-19] VITALS: BP 127/53
[2019-09-19 04:06] VITALS: BP 118/68
[2019-09-19] MEDS: PANTOPRAZOLE SODIUM 40 MG TABLET.DR PO SCH (06:24)
[2019-09-19] MEDS: LEVOTHYROXINE 25 MCG TABLET PO SCH (06:24)
[2019-09-19 07:38] VITALS: BP 114/58
[2019-09-19] MEDS: LEVETIRACETAM 500 MG TABLET PO SCH (07:44)
[2019-09-19] MEDS: ENALAPRIL MALEATE 5 MG TAB PO SCH (07:45)
[2019-09-19] MEDS: CARVEDILOL 6.25 MG TABLET PO SCH (07:45)
[2019-09-19] MEDS: FUROSEMIDE 20 MG TABLET PO SCH (07:45)
[2019-09-19] MEDS: MEGESTROL 400 MG/10 ML UDCUP PO SCH (07:47)
[2019-09-19 11:50] VITALS: BP 110/58
--- NOTE | 2019-09-19 14:52 | NUR ---
REPORT TO PEDRO RAMSAY, SPOKE WITH BRIDGET FORMAN RN. Addendum: 09/19/19 at 1633 by KAYLEN MCKEON RN RN [facility]AN [facility]Y REQUESTED.
== END 2019-09-19 18:00 | DRG 226 ==
LOC: EDH 11:58 → EDHIP 12:40 → 2AH 13:25
PROVIDERS: ADMIT Internal Medicine Cardiovascular Disease; ATTEND Internal Medicine Cardiovascular Disease
PROC: 5A12012 Performance of Cardiac Output, Single, Manual (ICD-10-PCS; 2019-09-11)
PROC: 4B02XTZ Measurement of Cardiac Defibrillator, External Approach (ICD-10-PCS; 2019-09-14)
PROC: 0JH609Z Insertion of Cardiac Resynchronization Defibrillator Pulse Generator into Chest Subcutaneous Tissue and Fascia, Open Approach (ICD-10-PCS; principal; 2019-09-17)
PROC: 02HK3KZ Insertion of Defibrillator Lead into Right Ventricle, Percutaneous Approach (ICD-10-PCS; 2019-09-17)
PROC: 02HL3KZ Insertion of Defibrillator Lead into Left Ventricle, Percutaneous Approach (ICD-10-PCS; 2019-09-17)
PROC: 0JPT0PZ Removal of Cardiac Rhythm Related Device from Trunk Subcutaneous Tissue and Fascia, Open Approach (ICD-10-PCS; 2019-09-17)
PROC: 02PA3MZ Removal of Cardiac Lead from Heart, Percutaneous Approach (ICD-10-PCS; 2019-09-17)
PROC: 02H63KZ Insertion of Defibrillator Lead into Right Atrium, Percutaneous Approach (ICD-10-PCS; 2019-09-17)
DX: I48.19 Other persistent atrial fibrillation (principal); I50.23 Acute on chronic systolic (congestive) heart failure; N17.9 Acute kidney failure, unspecified; I42.0 Dilated cardiomyopathy; E03.9 Hypothyroidism, unspecified; G40.909 Epilepsy, unspecified, not intractable, without status epilepticus; I34.0 Nonrheumatic mitral (valve) insufficiency; I45.9 Conduction disorder, unspecified; N18.9 Chronic kidney disease, unspecified; Z79.01 Long term (current) use of anticoagulants; I95.9 Hypotension, unspecified; I25.10 Atherosclerotic heart disease of native coronary artery without angina pectoris; Z66 Do not resuscitate; E86.1 Hypovolemia; Z95.0 Presence of cardiac pacemaker; Z79.899 Other long term (current) drug therapy
CPT/HCPCS: 33225; 33228; 33229; 36415; 71045; 80048; 80053; 80162; 82550; 82948; 83874; 83880; 84443; 84484; 85025; 85027; 85610; 93005; 93306; 97039; 99156; 99157; C1769; C1900; G0378; J1250; J1940; J2175; J2250; J3370; J3490; J7040; Q9967